=== PATIENT | female | born 1990 | race Caucasian/White ===

== ENCOUNTER 2020-09-04 19:32 | Emergency (ER) | payer SELFPAY ==
[~2020-09-04] VITALS: Ht 170.2 cm; Wt 97.8 kg
[2020-09-04 19:39] VITALS: BP 128/81
--- NOTE | 2020-09-04 20:55 | NUR ---
PT. TO ED WITH C/O BLE INTERMITTEN SWELLING SINCE WEDNESDAY. PT. REPORTS SWELLING ON R>L. C/O PAIN TO RIGHT CALF SINCE WEDNESDAY. NO REDNESS OR WARMTH TO SITE. NO SIGNIFICANT SWELLING APPRECIATED BY THIS RN. PT. DENIES ANY RECENT SX OR LONG TRAVEL. DENIES SMOKING OR CONTROL.
== END 2020-09-04 22:44 | disposition home or self-care (01) ==
LOC: ED 20:02
DX: M79.661 Pain in right lower leg (principal)
CPT/HCPCS: 99284